=== PATIENT | female | born 1955 | race Two or more races ===

== ENCOUNTER 2019-08-03 08:27 | Day surgery (SDC) | payer MEDICARE, MEDICAID ==
[~2019-08-03] VITALS: Ht 152.4 cm; Wt 68.0 kg
[2019-08-03] MEDS ORDERED: BALANCED SALT IRRIG SOLN COMB1 500ML OP NR (08:45)
[2019-08-03] MEDS ORDERED: PHENYLEPHRINE HCL 10% OPHTH DROPS 5ML RIGHTEYE ONE (09:25)
[2019-08-03] MEDS ORDERED: CYCLOPENTOLATE HCL 1% OPHTH DROPS 2ML RIGHTEYE ONE (09:25)
[2019-08-03] MEDS ORDERED: TROPICAMIDE 1% OPHTH DROPS 15ML RIGHTEYE ONE (09:25)
[2019-08-03] MEDS ORDERED: LACTATED RINGERS 1,000 ML IV SCH (09:40)
[2019-08-03] MEDS ORDERED: HYALURONATE SODIUM 14 MG/ML 0.85ML SYRINGE IO ONE ×2 (10:11→11:32)
[2019-08-03] MEDS ORDERED: NAPR500T7 PO (11:13)
[2019-08-03] MEDS ORDERED: RANI150T7 PO (11:13)
[2019-08-03] MEDS ORDERED: LEVO100T9 PO (11:13)
[2019-08-03] MEDS ORDERED: LOSA100T32 PO (11:13)
[2019-08-03] MEDS ORDERED: CALC-1042 PO (11:13)
[2019-08-03] MEDS ORDERED: MIDAZOLAM HCL 2 MG/2 ML VIAL ONE (11:32)
[2019-08-03] MEDS ORDERED: FENTANYL CITRATE/PF 50MCG/ML 2ML VIAL ONE (11:32)
[2019-08-03] MEDS ORDERED: KETOROLAC 30MG/ML VIAL ONE (11:32)
== END 2019-08-03 13:25 | disposition home or self-care (01) ==
LOC: OR 08:27
PROVIDERS: ATTEND Ophthalmology
DX: H25.89 Other age-related cataract (principal); K21.0 Gastro-esophageal reflux disease with esophagitis; E78.00 Pure hypercholesterolemia, unspecified; I10 Essential (primary) hypertension; E03.9 Hypothyroidism, unspecified; Z79.899 Other long term (current) drug therapy; Z98.890 Other specified postprocedural states; Z98.891 History of uterine scar from previous surgery
CPT/HCPCS: 66984; J1885; J2250; J3010; J3490; V2632

== ENCOUNTER → 2020-04-14 | Outpatient (CLI) | payer MEDICARE, MEDICAID ==
[~2020-04-14] MED LIST: CALC-1042 PO; LEVO100T9 PO; LOSA100T32 PO; NAPR500T7 PO; RANI150T7 PO
== END | disposition home or self-care (01) ==
LOC: LAB 14:03
PROVIDERS: ATTEND Ophthalmology
DX: Z01.812 Encounter for preprocedural laboratory examination (principal); Z20.828 Contact with and (suspected) exposure to other viral communicable diseases
CPT/HCPCS: C9803; U0003

== ENCOUNTER → 2020-04-18 | Day surgery (SDC) | payer MEDICARE, MEDICAID ==
[~2020-04-18] VITALS: Ht 157.5 cm; Wt 61.7 kg
[~2020-04-18] MED LIST changes: +BALANCED SALT IRRIG SOLN 15ML ONE; +BALANCED SALT IRRIG SOLN COMB1 500ML OP SCH; +CYCLOPENTOLATE HCL 1% OPHTH DROPS 2ML LEFTEYE ONE; +CYCLOPENTOLATE HCL 1% OPHTH DROPS 2ML ONE; +FENTANYL CITRATE/PF 50MCG/ML 2ML VIAL ONE; +HYALURONATE SODIUM 10 MG/ML 0.55ML SYRINGE IO ONE; +LACTATED RINGERS 1,000 ML IV SCH; +LIDOCAINE HCL/PF 2% 20 MG/ML 10ML VIAL ONE; +MIDAZOLAM HCL 2 MG/2 ML VIAL ONE; +PHENYLEPHRINE HCL 10% OPHTH DROPS 5ML LEFTEYE ONE; +PHENYLEPHRINE HCL 10% OPHTH DROPS 5ML ONE; +TETRACAINE 0.5% OPHTH DROPS 4ML ONE; +TROPICAMIDE 1% OPHTH DROPS 15ML LEFTEYE ONE; +TROPICAMIDE 1% OPHTH DROPS 15ML ONE
== END | disposition home or self-care (01) ==
LOC: OR 05:22
PROVIDERS: ATTEND Ophthalmology
DX: H25.89 Other age-related cataract (principal); Z53.8 Procedure and treatment not carried out for other reasons; K21.0 Gastro-esophageal reflux disease with esophagitis; I10 Essential (primary) hypertension; E03.9 Hypothyroidism, unspecified; E78.00 Pure hypercholesterolemia, unspecified; Z79.899 Other long term (current) drug therapy; Z98.890 Other specified postprocedural states
CPT/HCPCS: J2250; J3010; J3490